=== PATIENT | female | born 1960 | race Caucasian/White ===

== ENCOUNTER 2024-05-01 07:18 | Outpatient (CLI) | payer OTHER | END 2024-05-01 07:30 | disposition home or self-care (01) | LOC: TOM 07:18 | PROVIDERS: ATTEND Internal Medicine Gastroenterology | DX: K57.30 Diverticulosis of large intestine without perforation or abscess without bleeding (principal) ==

== ENCOUNTER 2024-07-06 10:30 | Inpatient (IN) | payer OTHER ==
[~2024-07-06] VITALS: Ht 160 cm; Wt 68.0 kg
[2024-07-06] MEDS ORDERED: VERELAN PM200 MG PO (10:45)
[2024-07-06] MEDS ORDERED: ROSUVASTATIN CA10 MG PO (10:45)
[2024-07-06] MEDS ORDERED: SYNTHROID112 MCG PO (10:46)
[2024-07-06] MEDS ORDERED: METFORMIN HCL1000 M2 PO (10:46)
[2024-07-06] MEDS ORDERED: OMEGA 3 1,0001 EACH PO (10:47)
[2024-07-17] MEDS ORDERED: METRONIDAZOLE/SODIUM CHLORIDE 500 MG/100 ML PIGGYBACK IV ONE (07:00)
[2024-07-17] MEDS ORDERED: CEFTRIAXONE SODIUM 2,000 MG VIAL IV ONE (07:40)
[2024-07-17] MEDS ORDERED: BUPIVACAINE HCL 30 ML VIAL IJ ONE (08:10)
[2024-07-17] MEDS ORDERED: LIDOCAINE HCL 1%/EPINEPHRINE 20ML VIAL IJ ONE (08:10)
[2024-07-17] MEDS ORDERED: CHLORHEXIDINE GLUCONATE 120 ML BOTTLE TOP ONE (09:00)
[2024-07-17] MEDS ORDERED: ONDANSETRON HCL 2 MG/ML VIAL IV PRN (10:15)
[2024-07-17] MEDS ORDERED: 0.9 % SODIUM CHLORIDE 1,000 ML IV SCH (10:15)
[2024-07-17] MEDS ORDERED: MORPHINE SULFATE 4 MG/ML CARTRIDGE IV PRN (10:15)
[2024-07-17] MEDS ORDERED: DEXTROSE 50 % IN WATER 0.5 G/ML DISP.SYRIN IV PRN (10:15)
[2024-07-17] MEDS ORDERED: MORPHINE SULFATE 4 MG/ML VIAL IV ONE ×2 (10:55→11:25)
[2024-07-17 11:16] LABS: HEMATOCRIT 38.2 % (36.0-45.00); HEMOGLOBIN 12.7 g/dL (12.0-15.00); MEAN CELL VOLUME 81.2 fL (80.00-100.00); MEAN CORPUSCULAR HGB CONC 33.2 g/dl (32.0-36.0); PLATELET COUNT 248 K/uL (150-450); RED BLOOD COUNT 4.71 M/uL (4.00-6.00); RED CELL DISTRIBUTION WIDTH 13.1 % (11.5-14.5)
[2024-07-17 12:16] LABS: ALBUMIN 3.3 gm/dL (3.4-5.0); CREATININE SERUM 1.21 mg/dL (0.55-1.02); GFR 44.94; PHOSPHOROUS 3.4 mg/dL (2.5-4.9); POTASSIUM 3.84 mEq/L (3.5-5.1)
[2024-07-17 12:19] VITALS: BP 124/85; O2SAT 100
[2024-07-17] MEDS ORDERED: HYOSCYAMINE SULFATE 0.125 MG TAB.SUBL SL SCH (13:00)
[2024-07-17] MEDS ORDERED: ACETAMINOPHEN 500 MG GEL..CAP PO SCH (14:00)
[2024-07-17 16:00] VITALS: BP 119/69; O2SAT 95
[2024-07-17] MEDS ORDERED: METRONIDAZOLE/SODIUM CHLORIDE 500 MG/100 ML PIGGYBACK IV SCH (17:00)
[2024-07-17] MEDS ORDERED: POLYETHYLENE GLYCOL 3350 17 GM BLIST.PACK PO SCH (17:00)
[2024-07-17] MEDS ORDERED: GABAPENTIN 300 MG CAPSULE PO SCH (17:00)
[2024-07-17] MEDS ORDERED: CELECOXIB 200 MG CAPSULE PO SCH (21:00)
[2024-07-17] MEDS ORDERED: FAMOTIDINE/PF 20 MG/2 ML VIAL IV PUSH SCH (21:00)
[2024-07-18 00:15] VITALS: BP 125/75; O2SAT 98
[2024-07-18 06:31] LABS: HEMATOCRIT 36.8 % (36.0-45.00); HEMOGLOBIN 12.3 g/dL (12.0-15.00); MEAN CELL VOLUME 81.5 fL (80.00-100.00); MEAN CORPUSCULAR HEMOGLOBIN 27.3 pg (27.00-32.0); MEAN CORPUSCULAR HGB CONC 33.5 g/dl (32.0-36.0); PLATELET COUNT 208 K/uL (150-450); RED BLOOD COUNT 4.51 M/uL (4.00-6.00)
[2024-07-18 07:16] LABS: CALCIUM 8.6 mg/dL (8.5-10.1); CREATININE SERUM 0.9 mg/dL (0.55-1.02); GFR 63.24; POTASSIUM 5.17 mEq/L (3.5-5.1)
[2024-07-18 10:04] VITALS: BP 146/88; O2SAT 96
[2024-07-18 16:00] VITALS: BP 135/81; O2SAT 100
[2024-07-18] MEDS ORDERED: ENOXAPARIN SODIUM 40 MG/0.4 ML SYRINGE SUBCUTANEO SCH (17:00)
[2024-07-19 00:30] VITALS: BP 119/76; O2SAT 96
[2024-07-19] MEDS ORDERED: ENOXAPARIN SODIUM 40 MG/0.4 ML SYRINGE SUBCUTANEO SCH (09:00)
[2024-07-19 10:56] VITALS: BP 118/78; O2SAT 94
[2024-07-19 16:00] VITALS: BP 126/84; O2SAT 97
[2024-07-20] VITALS: BP 127/86; O2SAT 100
[2024-07-20 08:00] VITALS: BP 137/80; O2SAT 99
[2024-07-20] MEDS ORDERED: HYOSCYAMINE0.125 M1 SL (12:26)
[2024-07-20] MEDS ORDERED: PEPCID AC20 MG PO (12:26)
[2024-07-20] MEDS ORDERED: TRAM1TAB98 PO (12:26)
== END 2024-07-20 13:56 | disposition home or self-care (01) | DRG 330 ==
LOC: O/R 07-17 05:32 → SURH 07-17 10:15
PROVIDERS: ADMIT Surgery; ATTEND Surgery
PROC: 0DBP4ZZ Excision of Rectum, Percutaneous Endoscopic Approach (ICD-10-PCS; 2024-07-17)
PROC: 0DJ08ZZ Inspection of Upper Intestinal Tract, Via Natural or Artificial Opening Endoscopic (ICD-10-PCS; 2024-07-17)
PROC: 0DQ80ZZ Repair Small Intestine, Open Approach (ICD-10-PCS; 2024-07-17)
PROC: 0DTN4ZZ Resection of Sigmoid Colon, Percutaneous Endoscopic Approach (ICD-10-PCS; principal; 2024-07-17 10:15)
DX: K57.20 Diverticulitis of large intestine with perforation and abscess without bleeding (principal); K56.600 Partial intestinal obstruction, unspecified as to cause; K91.71 Accidental puncture and laceration of a digestive system organ or structure during a digestive system procedure; D37.4 Neoplasm of uncertain behavior of colon